=== PATIENT | female | born 1940 | race Caucasian/White ===

== ENCOUNTER 2018-01-26 21:35 | Inpatient (IN) | payer OTHER ==
[2018-01-26] MEDS ORDERED: ONDANSETRON 4 MG/2 ML VIAL IVPUSH STA (22:23)
[2018-01-26] MEDS ORDERED: SODIUM CHLORIDE 1,000 ML IV STA (22:23)
[2018-01-26] MEDS ORDERED: MORPHINE SULFATE 2 MG/ML VIAL IVPUSH ONE (22:29)
--- NOTE | 2018-01-26 22:29 | PDOC ---
Attending Attestation - Resident Resident Name: Conner Gonzalez - ED Attending Attestation I have performed the following: I have examined & evaluated the patient, The case was reviewed & discussed with the resident, I agree w/resident's findings & plan, Exceptions are as noted - HPI HPI: 01/26/18 22:28 77-year-old female who's had nausea and multiple bouts of diarrhea today. She said that she had clams last night. It didn't taste well. She hasn't had any vomiting but has some persistent nausea. She has lower abdominal cramping. She denies fever or chills or dysuria or vomiting Past surgical history of a partial hysterectomy <Neha Gil - Last Filed: 01/26/18 22:28> - Physicial Exam PE: 01/26/18 22:35 GENERAL: Well developed, well nourished. Awake and alert. No acute distress. HEENT: Normocephalic, atraumatic. PERRLA, EOMI. No conjunctival pallor. Sclera are non- icteric. Moist mucous membranes. Oropharynx is clear. NECK: Supple. Full ROM. No JVD. Carotid pulses 2+ and symmetric, without bruits. No thyromegaly. No lymphadenopathy. CARDIOVASCULAR: Regular rate and rhythm. No murmurs, rubs, or gallops. Distal pulses are 2+ and symmetric. PULMONARY: No evidence of respiratory distress. Lungs clear to auscultation bilaterally. No wheezing, rales or rhonchi. ABDOMINAL: (+) bilateral lower quadrant tenderness to palpation. Soft. Non-distended. No rebound or guarding. No organomegaly. Normoactive bowel sounds. MUSCULOSKELETAL Normal range of motion at all joints. No bony deformities or tenderness. No CVA tenderness. EXTREMITIES: No cyanosis. No clubbing. No edema. No calf tenderness. SKIN: Warm and dry. Normal capillary refill. No rashes. No jaundice. NEUROLOGICAL: Alert, awake, appropriate. Cranial nerves 2-12 intact. Normoreflexic in the upper and lower extremities. Normal speech. Toes are down-going bilaterally. Gait is normal without ataxia. PSYCHIATRIC: Cooperative. Good eye contact. Appropriate mood and affect. - Medical Decision Making 01/26/18 22:36 Documentation prepared by Eusebia Cassidy, acting as medical delivery technician for Neha Gil MD <Eusebia Cassidy - Last Filed: 01/26/18 22:36>
--- NOTE | 2018-01-26 22:55 | PDOC ---
History of Present Illness - General Chief Complaint: Pain Stated Complaint: LOWER ABDOMINAL PAIN Time Seen by Provider: 01/26/18 22:19 History Source: Patient, Family Exam Limitations: Clinical Condition - History of Present Illness Initial Comments: 01/26/18 22:59 77F PMH of HTN HLD and CVA with no residual defect who presents to the hospital with a 1 day history of diarrhea and lower abdominal cramping. She states she ate some baked clams yesterday and her daughter ate the same one but she only ate one because she thought they "tasted funny" but the patient continued to eat them. She did not eat any raw. Per the daughter and the patient she had at least 12 bowel movements today. She also endorsed some nausea but not vomiting. She denies fever chills chest pain or shortness of breath. Denies urinary symptoms. Had some blood spotting on her underwear but the patient thinks it is from being so sore from wiping and multiple bowel movements. Past History - Travel Traveled outside of the country in the last 30 days: No Close contact w/someone who was outside of country & ill: No - Past Medical History Allergies/Adverse Reactions: Allergies Allergy/AdvReac Type Severity Reaction Status Date / Time banana Allergy Verified 01/27/18 00:47 Home Medications: Ambulatory Orders Amlodipine Besylate 5 mg PO DAILY 01/26/18 Aspirin [Steven Chewable] 81 mg PO DAILY 01/26/18 Atorvastatin Ca [Lipitor] 80 mg PO HS 01/26/18 Celecoxib [Celebrex] 200 mg PO DAILY 01/26/18 Cholecalciferol (Vitamin D3) [Vitamin D3] 400 unit PO DAILY 01/26/18 Desloratadine [Clarinex] 5 mg PO DAILY 01/26/18 Docusate Sodium [Dulcolax Stool Softener] 100 mg PO DAILY 01/26/18 Multivit-Min/FA/Lycopen/Lutein [Centrum Silver Tablet] 1 each PO DAILY 01/26/18 Quinapril HCl 20 mg PO DAILY 01/26/18 Solifenacin Succinate [Vesicare -] 10 mg PO DAILY 01/26/18 CVA: Yes COPD: No HTN: Yes Hypercholesterolemia: Yes - Suicide/Smoking/Psychosocial Hx Smoking History: Former smoker Have you smoked in the past 12 months: No If you are a former smoker, when did you quit?: 40 years ago Information on smoking cessation initiated: No Review of Systems - Review of Systems Able to Perform ROS?: Yes Is the patient limited Danish proficient: Yes Constitutional: Yes: Loss of Appetite. No: Symptoms Reported, See HPI, Chills, Diaphoresis, Fever, Malaise, Night Sweats, Weakness, Weight Stable, Unintentional Wgt. Loss, Unexplained wgt Loss, Other HEENTM: No: Symptoms Reported, See HPI, Eye Pain, Blurred Vision, Tearing, Recent change in vision, Double Vision, Cataracts, Ear Pain, Ocular Prothesis, Ear Discharge, Nose Pain, Nose Congestion, Tinnitus, Nose Bleeding, Hearing Loss , Throat Pain, Throat Swelling, Mouth Pain, Dental Problems, Difficulty Swallowing, Mouth Swelling, Other Respiratory: No: Symptoms reported, See HPI, Cough, Orthopnea, Shortness of Breath, SOB with Exertion, SOB at Rest, Stridor, Wheezing, Productive cough, Hemoptysis, Other Cardiac (ROS): No: Symptoms Reported, See HPI, Chest Pain, Edema, Irregular Heart Rate, Lightheadedness, Palpitations, Syncope, Chest Tightness, Other ABD/GI: Yes: Diarrhea, Nausea, Abdominal cramping. No: Vomiting Musculoskeletal: No: Symptoms Reported, See HPI, Back Pain, Gout, Joint Pain, Joint Swelling, Muscle Pain, Muscle Weakness, Neck Pain, Joint Stiffness, Other Integumentary: No: Symptoms Reported, See HPI, Bruising, Change in Color, Change in Hair/Nails, Dryness, Erythema, Flushing, Lesions, Lumps, Pallor, Pruritus, Rash, Sweating, Other Neurological: No: Symptoms reported, See HPI, Headache, Numbness, Paresthesia, Pre-Existing Deficit, Seizure, Tingling, Tremors, Weakness, Unsteady Gait, Ataxia, Dizziness, Other Psychiatric: No: Anxiety, Depression, Frequent Crying, Stressors, Sleep Pattern Change, Emotional Problems, Mood Swings, Change in Appetite, Other Hematologic/Lymphatic: No: Symptoms Reported, See HPI, Anemia, Blood Clots, Easy Bleeding, Easy Bruising, Bleeding Diathesis, Lymph Node Abnormalities, Swollen Glands, Other *Physical Exam - Vital Signs Last Vital Signs Temp Pulse Resp BP Pulse Ox 97.3 F L 84 18 121/75 96 01/26/18 21:56 01/26/18 21:56 01/26/18 21:56 01/26/18 21:56 01/26/18 21:56 - Physical Exam General Appearance: Yes: Nourished, Obese. No: Apparent Distress HEENT: positive: EOMI, Other (cry mucous membranes) Neck: positive: Trachea midline Respiratory/Chest: positive: Lungs Clear, Normal Breath Sounds Cardiovascular: positive: Regular Rhythm, Regular Rate, S1, S2. negative: Edema , JVD Gastrointestinal/Abdominal: positive: Normal Bowel Sounds, Soft, Other (patient has pain palpation does not illicit any tenderness) Rectal Exam: positive: normal rectal tone, other (brown stool on glove. Sore and red around anus ) Musculoskeletal: negative: CVA Tenderness Integumentary: positive: Dry Neurologic: positive: pulp and paper tester II-XII NML intact, Fully Oriented, Alert ED Treatment Course - LABORATORY CBC & Chemistry Diagram: 01/28/18 06:00 01/28/18 06:00 Medical Decision Making - Medical Decision Making 01/26/18 23:12 77F with PMH of HTN and HLD presents with abdominal pain cramping and diarrhea likely with viral gastroenteritis vs colitis vs diverticulitis CBC CMP Lipase UA EKG IVF reassess admit Patient signed out to Dr. Michael *DC/Admit/Observation/Transfer Diagnosis at time of Disposition: Abdominal pain, Nausea without vomiting, Diarrhea, Leukocytosis, Sepsis - Discharge Dispostion Condition at time of disposition: Guarded - Referrals - Patient Instructions - Post Discharge Activity
[2018-01-26 23:07] LABS: BASO % 0.2 % (0-2.0); EOS % 0.1 % (0-4.5); HEMATOCRIT 45.8 % (32.4-45.2); HEMOGLOBIN 15.4 GM/dL (10.7-15.3); LYMPH % 3.9 % (8-40); MCH 30.4 pg (25.7-33.7); MCHC 33.7 g/dl (32.0-36.0); MEAN CELL VOLUME 90.1 fl (80-96); MONO % 4.1 % (3.8-10.2); NEUT % 91.7 % (42.8-82.8); PLATELET COUNT 247 K/MM3 (134-434); RBC 5.08 M/mm3 (3.60-5.2); RDW 13.5 % (11.6-15.6); WHITE BLOOD COUNT 22.8 K/mm3 (4.0-10.0)
[2018-01-26] MEDS ORDERED: ONDANSETRON 4 MG/2 ML VIAL ONE (23:33)
[2018-01-26] MEDS ORDERED: MORPHINE SULFATE 10 MG/1 ML *VIAL ONE (23:37)
[2018-01-26 23:57] LABS: ALBUMIN 3.8 g/dl (3.4-5.0); ALK PHOS 77 U/L (45-117); ANION GAP 10 (8-16); BILIRUBIN,TOTAL 0.8 mg/dL (0.2-1.0); BLOOD UREA NITROGEN 26 mg/dL (7-18); CALCIUM 9.5 mg/dL (8.5-10.1); CHLORIDE 99 mmol/L (98-107); CO2 26 mmol/L (21-32); CREATININE 1.1 mg/dL (0.55-1.02); GLUCOSE,RANDOM 158 mg/dL (74-106); LIPASE 100 U/L (73-393); POTASSIUM 3.9 mmol/L (3.5-5.1); SGOT/AST 20 U/L (15-37); SGPT/ALT 24 U/L (12-78); SODIUM 135 mmol/L (136-145); TOT PROT 6.3 g/dl (6.4-8.2)
[2018-01-27] MEDS ORDERED: SODIUM CHLORIDE 1,000 ML IV STA (00:39)
--- NOTE | 2018-01-27 02:03 | PDOC ---
*Physical Exam - Vital Signs Last Vital Signs Temp Pulse Resp BP Pulse Ox 97.3 F L 84 18 121/75 96 01/26/18 21:56 01/26/18 21:56 01/26/18 21:56 01/26/18 21:56 01/26/18 21:56 - Physical Exam Comments: 01/27/18 02:00 Care endorsed to me by Dr. Gonzalez at the end of his shift. 77 YOF p/w lower abdominal cramping, nausea, diarrhea, and spots of blood on her underwear. She has a small amount of perineal skin breakdown. Fairly benign exam, not peritoneal. Daughter stated she ate a questionable-tasting baked clam and subsequently had a mild stomach ache. WBC is 22.8k, pending CT A/P with IV contrast, then will decide on dispo. ED Treatment Course - LABORATORY CBC & Chemistry Diagram: 01/28/18 06:00 01/28/18 06:00 - ADDITIONAL ORDERS Additional order review: Laboratory Results 01/26/18 22:50 Sodium 135 L Potassium 3.9 Chloride 99 Carbon Dioxide 26 Anion Gap 10 BUN 26 H Creatinine 1.1 H Creat Clearance w eGFR 48.04 Random Glucose 158 H Calcium 9.5 Total Bilirubin 0.8 AST 20 ALT 24 Alkaline Phosphatase 77 Total Protein 6.3 L Albumin 3.8 Lipase 100 01/26/18 22:50 RBC 5.08 MCV 90.1 MCHC 33.7 RDW 13.5 MPV 9.0 Neutrophils % 91.7 H Lymphocytes % 3.9 L Monocytes % 4.1 Eosinophils % 0.1 Basophils % 0.2 - Medications Given in the ED: ED Medications Discontinued Medications Generic Name Dose Route Start Last Admin Trade Name Freq PRN Reason Stop Dose Admin Sodium Chloride 1,000 mls @ 1,000 mls/hr 01/26/18 22:23 01/26/18 23:43 Normal Saline - IV 01/26/18 23:22 1,000 mls/hr ASDIR STA Administration Sodium Chloride 1,000 mls @ 1,000 mls/hr 01/27/18 00:39 01/27/18 00:46 Normal Saline - IV 01/27/18 01:38 1,000 mls/hr ASDIR STA Administration Morphine Sulfate 2 mg 01/26/18 22:29 08/05/18 23:44 Morphine Sulfate IVPUSH 01/26/18 22:30 2 mg ONCE ONE Administration Ondansetron HCl 4 mg 01/26/18 22:23 01/26/18 23:44 Zofran Injection IVPUSH 01/26/18 22:24 4 mg ONCE STA Administration Medical Decision Making - Medical Decision Making Adult patient p/w lower abdominal pain, nausea, 12-13 episodes diarrhea. Initial Vital Signs Temp Pulse Resp BP Pulse Ox 97.3 F L 84 18 121/75 96 01/26/18 21:56 01/26/18 21:56 01/26/18 21:56 01/26/18 21:56 01/26/18 21:56 EKG: Reviewed; RBBB, QTc =498. CT A/P with IV contrast: colitis. Laboratory Tests 01/26/18 01/26/18 22:50 22:50 WBC 22.8 H RBC 5.08 Hgb 15.4 H Hct 45.8 H MCV 90.1 MCH 30.4 MCHC 33.7 RDW 13.5 Plt Count 247 MPV 9.0 Absolute Neuts (auto) 21.0 Neutrophils % 91.7 H Lymphocytes % 3.9 L Monocytes % 4.1 Eosinophils % 0.1 Basophils % 0.2 Nucleated RBC % 0 Sodium 135 L Potassium 3.9 Chloride 99 Carbon Dioxide 26 Anion Gap 10 BUN 26 H Creatinine 1.1 H Creat Clearance w eGFR 48.04 Random Glucose 158 H Calcium 9.5 Total Bilirubin 0.8 AST 20 ALT 24 Alkaline Phosphatase 77 Total Protein 6.3 L Albumin 3.8 Lipase 100 01/27/18 03:23 Reassessment: Patient noting continued pain. ADMIT The Pt is unsafe for discharge at this time. They require further hospital observation, workup, and treatment. Spoke with admitting provider, in agreement Pt to be admitted to Med/Surg. Decision to Admit order placed to Dr. Garcia. Orders placed for Flagyl and Ceftriaxone IVPB. Would have chosen Flagyl/Levaquin but patient has prolonged QTc. Also ordered is Ofirmev. 01/27/18 03:40 Patient is now febrile (rectal 100.8), pressure becoming soft (100/57), borderline tachycardic (96). Another 500 cc bolus fluids ordered, along with Ofirmev. Sepsis order set placed and blood drawn for lactate, blood cx, VBG. Blood cultures have been drawn before abx given. 01/27/18 04:34 Laboratory Tests 01/26/18 01/26/18 01/27/18 22:50 22:50 03:45 WBC 22.8 H RBC 5.08 Hgb 15.4 H Hct 45.8 H MCV 90.1 MCH 30.4 MCHC 33.7 RDW 13.5 Plt Count 247 MPV 9.0 Absolute Neuts (auto) 21.0 Total Counted 100 Neutrophils % 91.7 H Neutrophils % (Manual) 77.0 Band Neutrophils % 4.0 Lymphocytes % 3.9 L Lymphocytes % (Manual) 11.0 Monocytes % 4.1 Monocytes % (Manual) 8 Eosinophils % 0.1 Basophils % 0.2 Nucleated RBC % 0 Platelet Estimate Adequate Platelet Comment No clumping noted PT with INR 12.50 INR 1.11 H PTT (Actin FS) 24.0 L Sodium 135 L Potassium 3.9 Chloride 99 Carbon Dioxide 26 Anion Gap 10 BUN 26 H Creatinine 1.1 H Creat Clearance w eGFR 48.04 Random Glucose 158 H Lactic Acid Calcium 9.5 Total Bilirubin 0.8 AST 20 ALT 24 Alkaline Phosphatase 77 Troponin I Total Protein 6.3 L Albumin 3.8 Lipase 100 01/27/18 01/27/18 01/27/18 03:45 03:45 03:50 WBC 16.6 H RBC 4.61 Hgb 14.3 Hct 41.2 MCV 89.3 MCH 31.1 MCHC 34.8 RDW 13.1 Plt Count 216 MPV 8.9 Absolute Neuts (auto) 15.3 Total Counted Neutrophils % 92.5 H Neutrophils % (Manual) Band Neutrophils % Lymphocytes % 3.2 L Lymphocytes % (Manual) Monocytes % 4.1 Monocytes % (Manual) Eosinophils % 0.0 D Basophils % 0.2 Nucleated RBC % 0 Platelet Estimate Platelet Comment PT with INR INR PTT (Actin FS) Sodium Potassium Chloride Carbon Dioxide Anion Gap BUN Creatinine Creat Clearance w eGFR Random Glucose Lactic Acid 3.9 H* Calcium Total Bilirubin AST ALT Alkaline Phosphatase Troponin I < 0.02 Total Protein Albumin Lipase Lactate is 3.9. Patient has gotten almost sepsis bolus of IVF and repeat lactate has been ordered. *DC/Admit/Observation/Transfer Diagnosis at time of Disposition: Nausea without vomiting Abdominal pain Qualifiers: Abdominal location: unspecified location Qualified Code(s): R10.9 - Unspecified abdominal pain Diarrhea Qualifiers: Diarrhea type: infectious Qualified Code(s): A09 - Infectious gastroenteritis and colitis, unspecified Leukocytosis Qualifiers: Leukocytosis type: unspecified Qualified Code(s): D72.829 - Elevated white blood cell count, unspecified Sepsis Qualifiers: Sepsis type: sepsis due to unspecified organism Qualified Code(s): A41.9 - Sepsis, unspecified organism - Discharge Dispostion Condition at time of disposition: Guarded Decision to Admit order: Yes - Referrals - Patient Instructions - Post Discharge Activity
--- NOTE | 2018-01-27 02:16 | PDOC ---
*Physical Exam - Vital Signs Last Vital Signs Temp Pulse Resp BP Pulse Ox 97.3 F L 84 18 121/75 96 01/26/18 21:56 01/26/18 21:56 01/26/18 21:56 01/26/18 21:56 01/26/18 21:56 ED Treatment Course - LABORATORY CBC & Chemistry Diagram: 01/27/18 03:50 01/26/18 22:50 - ADDITIONAL ORDERS Additional order review: Laboratory Results 01/26/18 22:50 Sodium 135 L Potassium 3.9 Chloride 99 Carbon Dioxide 26 Anion Gap 10 BUN 26 H Creatinine 1.1 H Creat Clearance w eGFR 48.04 Random Glucose 158 H Calcium 9.5 Total Bilirubin 0.8 AST 20 ALT 24 Alkaline Phosphatase 77 Total Protein 6.3 L Albumin 3.8 Lipase 100 01/26/18 22:50 RBC 5.08 MCV 90.1 MCHC 33.7 RDW 13.5 MPV 9.0 Neutrophils % 91.7 H Lymphocytes % 3.9 L Monocytes % 4.1 Eosinophils % 0.1 Basophils % 0.2 - Medications Given in the ED: ED Medications Discontinued Medications Generic Name Dose Route Start Last Admin Trade Name Kamlesh PRN Reason Stop Dose Admin Sodium Chloride 1,000 mls @ 1,000 mls/hr 01/26/18 22:23 01/26/18 23:43 Normal Saline - IV 01/26/18 23:22 1,000 mls/hr ASDIR STA Administration Sodium Chloride 1,000 mls @ 1,000 mls/hr 01/27/18 00:39 01/27/18 00:46 Normal Saline - IV 01/27/18 01:38 1,000 mls/hr ASDIR STA Administration Morphine Sulfate 2 mg 01/26/18 22:29 01/26/18 23:44 Morphine Sulfate IVPUSH 01/26/18 22:30 2 mg ONCE ONE Administration Ondansetron HCl 4 mg 01/26/18 22:23 01/26/18 23:44 Zofran Injection IVPUSH 01/26/18 22:24 4 mg ONCE STA Administration Medical Decision Making - Medical Decision Making 01/27/18 02:16 Patient Name: GERALDO LOYOLA THIS IS A PRELIMINARY REPORT FROM [facility] DATE OF SERVICE: 2018-01-27 01:55:24 IMAGES: 15 EXAM: CT ABDOMEN \T\ PELVIS CT WITH CONTR HISTORY: Diarrhea COMPARISON: None. FINDINGS: Abdomen Liver: Structures suggest cavernous hemangiomas Spleen: Normal Pancreas: Normal Gallbladder: Normal Stomach: Normal Small bowel: Normal Large bowel: There is colonic thickening involving the distal transverse colon, descending colon and sigmoid colon. There is haziness in the surrounding fat. There is no pneumatosis Appendix: Normal Adrenals:Normal Kidneys: Normal Vascular: Normal Lymphatic: Normal Peritoneal: There is a small amount of fluid in the left paracolic gutter Pelvis: Uterus: normal Rectum: Normal Bladder: Normal The inferior thorax: Normal General: Skeletal: Normal Abdominal wall: Normal IMPRESSION: Nonspecific colitis Individualized dose optimization techniques were used for this CT. THIS DOCUMENT HAS BEEN ELECTRONICALLY SIGNED 01/27/18 06:50 Pt will be admitted for sepsis. *DC/Admit/Observation/Transfer Diagnosis at time of Disposition: Abdominal pain, Nausea without vomiting, Diarrhea, Leukocytosis, Sepsis - Discharge Dispostion Condition at time of disposition: Guarded - Referrals Referrals: Rad Perez MD [Primary Care Provider] - - Patient Instructions - Post Discharge Activity
[2018-01-27] MEDS ORDERED: morphine CARPU-JECT 2 MG/1 ML DISP.SYRIN IVPUSH ONE (02:19)
[2018-01-27] MEDS ORDERED: ACETAMINOPHEN 1000 MG/100 ML VIAL (NON FORMULARY) IVPB ONE (03:12)
[2018-01-27] MEDS ORDERED: SODIUM CHLORIDE 0.9% 500 ML INFUS.BAG IV ONE (03:12)
[2018-01-27] MEDS ORDERED: CEFTRIAXONE 1,000 MG in DEXTROSE 5%-WATER - 50 ML IVPB ONE (03:27)
[2018-01-27] MEDS ORDERED: SODIUM CHLORIDE 500 ML IV STA (03:32)
[2018-01-27] MEDS ORDERED: ONDANSETRON 4 MG/2 ML VIAL IVPUSH PRN (03:34)
[2018-01-27 04:00] LABS: BASO % 0.2 % (0-2.0); HEMATOCRIT 41.2 % (32.4-45.2); HEMOGLOBIN 14.3 GM/dL (10.7-15.3); LYMPH % 3.2 % (8-40); MCH 31.1 pg (25.7-33.7); MCHC 34.8 g/dl (32.0-36.0); MEAN CELL VOLUME 89.3 fl (80-96); MEAN PLT VOLUME 8.9 fl (7.5-11.1); MONO % 4.1 % (3.8-10.2); NEUT % 92.5 % (42.8-82.8); PLATELET COUNT 216 K/MM3 (134-434); RBC 4.61 M/mm3 (3.60-5.2); RDW 13.1 % (11.6-15.6); WHITE BLOOD COUNT 16.6 K/mm3 (4.0-10.0)
[2018-01-27 04:04] LABS: PLATELET ESTIMATE ADEQUATE
[2018-01-27 04:15] LABS: INR 1.11 (0.83-1.09); PROTHROMBIN TIME (PATIENT) 12.5 SEC (9.7-13.0)
[2018-01-27] MEDS ORDERED: cefTRIAXone SODIUM 1 GM VIAL ONE (04:20)
[2018-01-27] MEDS ORDERED: MORPHINE SULFATE 2 MG/ML VIAL ONE ×2 (04:20→10:07)
[2018-01-27] MEDS: SODIUM CHLORIDE 1,000 ML IV SCH (04:32)
[2018-01-27] MEDS ORDERED: ACETAMINOPHEN INJECTION 100 ML IVPB ONE (04:32)
[2018-01-27 04:56] LABS: PLATELET ESTIMATE ADEQUATE
[2018-01-27 06:32] LABS: MAGNESIUM 1.9 mg/dL (1.8-2.4)
[2018-01-27] MEDS ORDERED: CELECOXIB 200 MG CAPSULE PO SCH (10:00)
[2018-01-27] MEDS ORDERED: ASPIRIN 81 MG CHEWABLE TABLETS PO SCH (10:00)
[2018-01-27] MEDS ORDERED: PANTOPRAZOLE SODIUM 40 MG VIAL ONE (10:45)
--- NOTE | 2018-01-27 11:11 | HP ---
Admitting History and Physical - Primary Care Physician PCP: Rad Perez - Admission Chief Complaint: Nausea, vomiting diarrhea with abd pain History of Present Illness: 77 yrs old F active ambulates independently H/o HTN, dyslipedemia, CVa no residual weakness,chronic Back pain sciatica, last night present to Ed with 1 day H/O lower abd crampy pain with nausea, watery diarrhea and vomiting , patient daisyo experienced some chills denies any fever, as per patient on Saturday she had some clam in restaurant tht doesn't taste good yesterday around 4.00 PM developed abdominal symptoms, patient also notice some blood in stool last BM was in am , nausea and abd pain has improved, in the Ed w/u shows fever elevated TWBC with Left shift and CT abd shows collitis, elevated lactate improved after IV Hydration.No c/o chest pain, SOB, Palpitation, no change in ET denies any orthopnea or PND.Last EGd was 2 yrs ago no recent use of abx. History Source: Patient - Past Medical History UNDERWRITING MANAGER: Yes: CVA Cardiovascular: Yes: HTN, Hyperlipdemia - Smoking History Smoking history: Former smoker Have you smoked in the past 12 months: No If you are a former smoker, when did you quit?: 40 years ago - Social History ADL: Independent Home Medications - Allergies Allergies/Adverse Reactions: Allergies Allergy/AdvReac Type Severity Reaction Status Date / Time banana Allergy Verified 01/27/18 00:47 - Home Medications Home Medications: Ambulatory Orders Amlodipine Besylate 5 mg PO DAILY 01/26/18 Aspirin [Steven Chewable] 81 mg PO DAILY 01/26/18 Atorvastatin Ca [Lipitor] 80 mg PO HS 01/26/18 Celecoxib [Celebrex] 200 mg PO DAILY 01/26/18 Cholecalciferol (Vitamin D3) [Vitamin D3] 400 unit PO DAILY 01/26/18 Desloratadine [Clarinex] 5 mg PO DAILY 01/26/18 Docusate Sodium [Dulcolax Stool Softener] 100 mg PO DAILY 01/26/18 Multivit-Min/FA/Lycopen/Lutein [Centrum Silver Tablet] 1 each PO DAILY 01/26/18 Quinapril HCl 20 mg PO DAILY 01/26/18 Solifenacin Succinate [Vesicare -] 10 mg PO DAILY 01/26/18 Family Disease History - Family Disease History Family History: Unremarkable Review of Systems - Review of Systems Constitutional: reports: Chills, Fever, Loss of Appetite Eyes: denies: Blind Spots, Double Vision HENT: denies: Difficult Swallowing, Ear Discharge Neck: denies: Decreased ROM, Lumps, Pain on Movement Musculoskeletal: reports: Back Pain. denies: Crepitus, Decreased ROM Integumentary: denies: Blister, Bruising Neurological: reports: Change in LOC, Change in Speech, Confusion Endocrine: denies: Excessive Sweating, Flushing Psychiatric: denies: Altered Sleep Pattern, Anxiety, Depression Pain Intensity: 4 Physical Examination Vital Signs: Vital Signs Temperature 99.5 F 01/27/18 07:29 Pulse Rate 77 01/27/18 07:29 Respiratory Rate 18 01/27/18 07:29 Blood Pressure 102/48 01/27/18 07:29 O2 Sat by Pulse Oximetry (%) 97 01/27/18 07:29 Elderly F, not in distress, c/o back pain and mild nausea HEENT: Mm dry, no anemia, PERRLA EOMI NECK; No JVd No Bruit CHEST: CTa B/L CVS; S1S2 r ABD; no distention soft mild lower bad tend Left LQ, no rebound BS + EXT: No edema feet, no calf tenderness UNDERWRITING MANAGER: AOx3 non focal Labs: CBC, BMP 01/27/18 03:50 01/26/18 22:50 Laboratory Results - last 24 hr 01/26/18 01/26/18 01/27/18 22:50 22:50 03:45 WBC 22.8 H RBC 5.08 Hgb 15.4 H Hct 45.8 H MCV 90.1 MCH 30.4 MCHC 33.7 RDW 13.5 Plt Count 247 MPV 9.0 Absolute Neuts (auto) 21.0 Total Counted 100 Neutrophils % 91.7 H Neutrophils % (Manual) 77.0 Band Neutrophils % 4.0 Lymphocytes % 3.9 L Lymphocytes % (Manual) 11.0 Monocytes % 4.1 Monocytes % (Manual) 8 Eosinophils % 0.1 Basophils % 0.2 Nucleated RBC % 0 Platelet Estimate Adequate Platelet Comment No clumping noted PT with INR 12.50 INR 1.11 H PTT (Actin FS) 24.0 L Sodium 135 L Potassium 3.9 Chloride 99 Carbon Dioxide 26 Anion Gap 10 BUN 26 H Creatinine 1.1 H Creat Clearance w eGFR 48.04 Random Glucose 158 H Lactic Acid Calcium 9.5 Magnesium Total Bilirubin 0.8 AST 20 ALT 24 Alkaline Phosphatase 77 Troponin I Total Protein 6.3 L Albumin 3.8 Lipase 100 01/27/18 01/27/18 01/27/18 03:45 03:45 03:50 WBC 16.6 H RBC 4.61 Hgb 14.3 Hct 41.2 MCV 89.3 MCH 31.1 MCHC 34.8 RDW 13.1 Plt Count 216 MPV 8.9 Absolute Neuts (auto) 15.3 Total Counted 100 Neutrophils % 92.5 H Neutrophils % (Manual) 87.0 H Band Neutrophils % 8.0 Lymphocytes % 3.2 L Lymphocytes % (Manual) 4.0 L D Monocytes % 4.1 Monocytes % (Manual) 1 L D Eosinophils % 0.0 D Basophils % 0.2 Nucleated RBC % 0 Platelet Estimate Adequate Platelet Comment No clumping noted PT with INR INR PTT (Actin FS) Sodium Potassium Chloride Carbon Dioxide Anion Gap BUN Creatinine Creat Clearance w eGFR Random Glucose Lactic Acid 3.9 H* Calcium Magnesium 1.9 Total Bilirubin AST ALT Alkaline Phosphatase Troponin I < 0.02 Total Protein Albumin Lipase Imaging - Results Cat Scan: Report Reviewed EKG: Report Reviewed (RBBB at [address] chnages) Problem List - Problems (1) Sepsis Assessment/Plan: present with fever, nausea, vomiting and diarrhea TWBC 22 K , most likely due to Collitis IV abx, Sepsis protocol Ist Lactic acid 3.8 trended 2.3, F/U cultures and ID consultation. Code(s): A41.9 - SEPSIS, UNSPECIFIED ORGANISM Qualifiers: Sepsis type: sepsis due to unspecified organism Qualified Code(s): A41.9 - Sepsis, unspecified organism (2) Diarrhea Assessment/Plan: Infectious , fever elevated TWBC , elevated lactic acid on IV Ceftriaxone and Flagyl, noticed blood in the stool f/u H/H type and screen Code(s): R19.7 - DIARRHEA, UNSPECIFIED Qualifiers: Diarrhea type: infectious Qualified Code(s): A09 - Infectious gastroenteritis and colitis, unspecified (3) Nausea without vomiting Assessment/Plan: Zofran and PPI cont IV Hydration Code(s): R11.0 - NAUSEA (4) Dehydration Assessment/Plan: Due to diarrhea and vomiting IV Hydration F/U BMP Code(s): E86.0 - DEHYDRATION (5) LUX (acute kidney injury) Assessment/Plan: Due to Dehydration and infectious etiology F/U BMP after hydration. Code(s): N17.9 - ACUTE KIDNEY FAILURE, UNSPECIFIED (6) BRBPR (bright red blood per rectum) Assessment/Plan: BRBPR last colonoscopy was 2 yrs ago , Type and screen F/U H/H, GI consult, ID consult stool WBC, culture,Hold ASA and Celebrex Code(s): K62.5 - HEMORRHAGE OF ANUS AND RECTUM (7) Sciatica Assessment/Plan: Pain control. Code(s): M54.30 - SCIATICA, UNSPECIFIED SIDE
[2018-01-27] MEDS: PANTOPRAZOLE SODIUM 40 MG VIAL IVPUSH SCH (11:15)
[2018-01-27] MEDS: CHOLECALCIFEROL (VITAMIN D3) 400 UNIT TABLET (FP) PO SCH (11:15)
[2018-01-27] MEDS: QUINAPRIL HCL 20 MG TABLET (FP) PO SCH (11:15)
[2018-01-27] MEDS: SOLIFENACIN SUCCINATE 5 MG TAB (FP) PO SCH (11:15)
[2018-01-27] MEDS: LORATADINE 10 MG TABLET PO SCH (11:15)
[2018-01-27] MEDS: amLODIPine BESYLATE 5 MG TABLET (FP) PO SCH (11:15)
[2018-01-27] MEDS: MORPHINE SULFATE 2 MG/ML VIAL IVPUSH PRN (11:17)
[2018-01-27 11:27] LABS: BASO % 0.1 % (0-2.0); HEMATOCRIT 38.5 % (32.4-45.2); HEMOGLOBIN 13.3 GM/dL (10.7-15.3); MCH 30.9 pg (25.7-33.7); MCHC 34.5 g/dl (32.0-36.0); MEAN CELL VOLUME 89.3 fl (80-96); MEAN PLT VOLUME 9.2 fl (7.5-11.1); MONO % 5.9 % (3.8-10.2); PLATELET COUNT 181 K/MM3 (134-434); RBC 4.31 M/mm3 (3.60-5.2); RDW 13.7 % (11.6-15.6); WHITE BLOOD COUNT 18.5 K/mm3 (4.0-10.0)
[2018-01-27 11:43] LABS: ANION GAP 8 (8-16); BILIRUBIN,TOTAL 0.7 mg/dL (0.2-1.0); BLOOD UREA NITROGEN 20 mg/dL (7-18); CALCIUM 8.4 mg/dL (8.5-10.1); CHLORIDE 102 mmol/L (98-107); CO2 26 mmol/L (21-32); CREATININE 0.9 mg/dL (0.55-1.02); GLUCOSE,RANDOM 110 mg/dL (74-106); POTASSIUM 3.4 mmol/L (3.5-5.1); SGOT/AST 15 U/L (15-37); SGPT/ALT 20 U/L (12-78); SODIUM 136 mmol/L (136-145)
--- NOTE | 2018-01-27 11:43 | EKG ---
Test Reason : Blood Pressure : / mmHG Vent. Rate : 087 BPM Atrial Rate : 087 BPM P-R Int : 160 ms QRS Dur : 138 ms QT Int : 414 ms P-R-T Axes : 053 -16 048 degrees QTc Int : 498 ms NORMAL SINUS RHYTHM RIGHT BUNDLE BRANCH BLOCK ABNORMAL ECG NO PREVIOUS ECGS AVAILABLE Confirmed by ERIC MCLEOD, LEANDRO ([id number]) on 01/27/2018 11:42:42 AM Referred By: Confirmed By:LEANDRO REYES MD
[2018-01-27 11:44] LABS: ALK PHOS 54 U/L (45-117)
[2018-01-27] MEDS: D5-1/2NS+10 MEQ KCL - 10 MEQ/1,000 ML INFUS.BAG IV SCH (13:22)
--- NOTE | 2018-01-27 13:40 | PN ---
Progress Note (short form) - Note Progress Note: ID Consult dictated Acute gastroenteritis Fever/ leukocytosis R/O sepsis secondary to GI source Lactic acidosis Await cultures Continue empiric ceftriaxone/flagyl
[2018-01-27 13:45] VITALS: BMI 32.2
[2018-01-27 14:22] LABS: ACANTHOCYTES 0; ANISOCYTOSIS 0; HELMET CELLS 0; HOWELL-JOLLY BODIES 0; MACROCYTOSIS 0; OVALOCYTE 0; PLATELET ESTIMATE NORMAL; ROULEAU 0; SICKELED CELLS 0; TARGET CELLS 0; TEAR DROP CELLS 0; TOXIC GRANULATION 0
[2018-01-27] MEDS ORDERED: POTASSIUM CHLORIDE ORAL LIQUID 20 MEQ/15 ML PO ONE (16:30)
--- NOTE | 2018-01-27 19:05 | CONS ---
DATE OF CONSULTATION: DATE OF DICTATION: 01/27/2018 INFECTIOUS DISEASE CONSULTATION HISTORY OF PRESENT ILLNESS: The patient is a 77-year-old female evaluated for acute gastroenteritis. Patient states that she was well until 1 day prior to admission on the evening of January 25. She ate dinner with friends and family members. She consumed a meal of baked clams. She subsequently developed crampy lower abdominal pain, nausea and loose nonbloody stool. She reports having 12 bowel movement. She also experienced subjective fevers and chills. She presented to the emergency room where she was noted to be afebrile with a markedly elevated white blood cell count and a lactic acidosis. Cultures were obtained. She was empirically treated with Levaquin, Flagyl. CAT scan of the abdomen was obtained, the result is pending. At the present time she is comfortable after receiving an opiate analgesic. She has no complaints of abdominal pain. Abdominal pain was described as crampy in nature and involving the lower abdomen in the suprapubic area without radiation. She denies any nalini red blood per rectum, however daughter reports she did notice blood in the toilet. She had nausea but no vomiting. No other family members or friends became ill who shared the same meal. Recent travel to [place] last week. She was well while in [place]. No recent antibiotic therapy. PAST MEDICAL HISTORY: Positive for CVA, hypertension, hyperlipidemia. PAST SURGICAL HISTORY: Status post hysterectomy. ALLERGIES: No known allergies. MEDICATION: Norvasc, aspirin, Lipitor, Celebrex, quinapril. SOCIAL HISTORY: Former smoker. Lives at home with family members. SYSTEMS REVIEW: Neurologic: No loss of consciousness, seizure activity. Positive history of stroke in the past. Cardiac: Negative for chest pain or palpitations. Respiratory: Negative for cough or sputum production. Gastrointestinal: As per HPI. Genitourinary: Negative for urinary tract infection. LABORATORY DATA: White count on admission 22.8, with left shift. Hematocrit 45.8, platelet count 247. BUN 20, creatinine 0.9. Liver enzymes normal. Lactic acid 2.3. PHYSICAL EXAMINATION: General: On exam, the patient is awake and alert, lying in bed, in no acute distress. Not acutely toxic appearing. Vital signs: Temperature 99.5, T-max 100.8, blood pressure 102/48, pulse 72 regular, respirations 20 per minute. HEENT: Sclerae anicteric. Dry mucous membranes. Cardiovascular: Heart sounds S1, S2. Lungs: Clear. Abdomen: Hypoactive bowel sounds . Abdomen is soft, no tenderness elicited, no mass, rebound, or rigidity. Extremities: 1+ edema. IMPRESSION: 1. Acute gastroenteritis. 2. Fever, leukocytosis, rule out sepsis secondary to gastrointestinal source. 3. Lactic acidosis. Await stool studies, suspect viral versus bacterial gastroenteritis. Continue empiric antibiotic coverage for enteric pathogens with ceftriaxone and Flagyl, await CT results. GI evaluation . Thank you for the kind referral. MANUEL LYNN M.D. [id number]
--- NOTE | 2018-01-27 21:34 | CON.GI ---
Consult Consult Specialty:: Gastroenterology Referred by:: Dr Perez Reason for Consultation:: Bloody diarrhea and pain - History of Present Illness Chief Complaint: Lower abdominal pain followed by diarrhea and bleeding History of Present Illness: 77F developed the sudden onset of colicky suprapubic pain yesterday. She had eaten clams at a restaurant the night before but denies N/V. The pain culminated on a hard mucoid stool followed by multiple loose diarrheal movements that became bloody. The pain was managed wth morphine in the ER and has subsided as has the diarrhea. She had a WBC > 20K and lactic acidosis on admission. She denies any recent foreign travel or antibiotic exposure. Her son did return for a visit from [facility] several weeks ago and had GI problems. She had had several colonoscopies with Dr. Uche Devine but cannot recall being told of polyps or diverticular disease. She's a bit hungry tonight. - History Source History Provided By: Patient Limitations to Obtaining History: No Limitations - Past Medical History LIFE ASSURANCE REPRESENTATIVE: Yes: CVA (resolved at [facility] in 05/06 with thrombolytic therapy- had speech deficits & RUE weakness) Cardio/Vascular: Yes: HTN, Hyperlipdemia Gastrointestinal: Yes: Peptic Ulcer Disease (remotely- no hemorrhage) ...: No - Past Surgical History Past Surgical History: Yes: Colonoscopy, Tonsillectomy Additional Surgical History: transvaginal ISAURA for suspected premalignant condition that proved to be benign - Alcohol/Substance Use Hx Alcohol Use: Yes (wine with dinner) History of Substance Use: reports: None - Smoking History Smoking history: Former smoker Have you smoked in the past 12 months: No If you are a former smoker, when did you quit?: quit 1974 - Social History Usual Living Arrangement: Alone ADL: Independent Occupation: retired clerical work Place of : [facility] History of Recent Travel: No Home Medications - Allergies Allergies/Adverse Reactions: Allergies Allergy/AdvReac Type Severity Reaction Status Date / Time banana Allergy Verified 01/27/18 00:47 - Home Medications Home Medications: Ambulatory Orders Amlodipine Besylate 5 mg PO DAILY 01/26/18 Aspirin [Steven Chewable] 81 mg PO DAILY 01/26/18 Atorvastatin Ca [Lipitor] 80 mg PO HS 01/26/18 Celecoxib [Celebrex] 200 mg PO DAILY 01/26/18 Cholecalciferol (Vitamin D3) [Vitamin D3] 400 unit PO DAILY 01/26/18 Desloratadine [Clarinex] 5 mg PO DAILY 01/26/18 Docusate Sodium [Dulcolax Stool Softener] 100 mg PO DAILY 01/26/18 Multivit-Min/FA/Lycopen/Lutein [Centrum Silver Tablet] 1 each PO DAILY 01/26/18 Quinapril HCl 20 mg PO DAILY 01/26/18 Solifenacin Succinate [Vesicare -] 10 mg PO DAILY 01/26/18 Family Disease History - Family Disease History Family Disease History: CA: Father (in his late 60's of lung cancer), Other: Mother ( in her 70's of broken heart) Review of Systems - Review of Systems Constitutional: reports: Chills, Malaise Eyes: reports: No Symptoms HENT: reports: No Symptoms Neck: reports: No Symptoms Cardiovascular: reports: No Symptoms Respiratory: reports: No Symptoms Gastrointestinal: reports: Abdominal Pain, Constipation, Diarrhea, Rectal Bleeding Genitourinary: reports: No Symptoms Musculoskeletal: reports: Joint Pain Neurological: reports: No Symptoms Physical Exam-GI Vital Signs: Vital Signs Temperature 98.5 F 01/27/18 18:47 Pulse Rate 91 H 01/27/18 18:47 Respiratory Rate 18 01/27/18 18:47 Blood Pressure 115/57 01/27/18 18:47 O2 Sat by Pulse Oximetry (%) 97 01/27/18 13:46 CBC,CMP WBC 18.5 K/mm3 (4.0-10.0) H 01/27/18 10:41 RBC 4.31 M/mm3 (3.60-5.2) 01/27/18 10:41 Hgb 13.3 GM/dL (10.7-15.3) 01/27/18 10:41 Hct 38.5 % (32.4-45.2) 01/27/18 10:41 MCV 89.3 fl (80-96) 01/27/18 10:41 MCH 30.9 pg (25.7-33.7) 01/27/18 10:41 MCHC 34.5 g/dl (32.0-36.0) 01/27/18 10:41 RDW 13.7 % (11.6-15.6) 01/27/18 10:41 Plt Count 181 K/MM3 (134-434) 01/27/18 10:41 MPV 9.2 fl (7.5-11.1) 01/27/18 10:41 Absolute Neuts (auto) 16.9 # 01/27/18 10:41 Total Counted 100 01/27/18 03:50 Neutrophils % 91.0 % (42.8-82.8) H 01/27/18 10:41 Neutrophils % (Manual) 68.6 % (42.8-82.8) D 01/27/18 10:41 Band Neutrophils % 19.6 % 01/27/18 10:41 Lymphocytes % 3.0 % (8-40) L 01/27/18 10:41 Lymphocytes % (Manual) 2.9 % (8-40) L D 01/27/18 10:41 Monocytes % 5.9 % (3.8-10.2) 01/27/18 10:41 Monocytes % (Manual) 8 % (3.8-10.2) D 01/27/18 10:41 Eosinophils % 0.0 % (0-4.5) 01/27/18 10:41 Eosinophils % (Manual) 0.0 % (0-4.5) 01/27/18 10:41 Basophils % 0.1 % (0-2.0) 01/27/18 10:41 Basophils % (Manual) 0.0 % (0-2.0) 01/27/18 10:41 Myelocytes % (Man) 0 % (0-2) 01/27/18 10:41 Promyelocytes % (Man) 0 % (0-2) 01/27/18 10:41 Blast Cells % (Manual) 0 % (0-0) 01/27/18 10:41 Nucleated RBC % 0 % (0-0) 01/27/18 10:41 Metamyelocytes 1 % (0-2) 01/27/18 10:41 Hypochromia 0 01/27/18 10:41 Toxic Granulation 0 01/27/18 10:41 Dohle Bodies 0 01/27/18 10:41 Platelet Estimate Normal 01/27/18 10:41 Platelet Comment No clumping noted 01/27/18 03:50 Polychromasia 0 01/27/18 10:41 Poikilocytosis 0 01/27/18 10:41 Basophilic Stippling 0 01/27/18 10:41 Anisocytosis 0 01/27/18 10:41 Microcytosis 0 01/27/18 10:41 Macrocytosis 0 01/27/18 10:41 Spherocytes 0 01/27/18 10:41 Sickle Cells 0 01/27/18 10:41 Target Cells 0 01/27/18 10:41 Tear Drop Cells 0 01/27/18 10:41 Ovalocytes 0 01/27/18 10:41 Stomatocytes 0 01/27/18 10:41 Helmet Cells 0 01/27/18 10:41 [place] Bodies 0 01/27/18 10:41 [place] Rings 0 01/27/18 10:41 Lamont Cells 0 01/27/18 10:41 Acanthocytes (Spur) 0 01/27/18 10:41 Rouleaux 0 01/27/18 10:41 Fragmented RBCs 0 01/27/18 10:41 Schistocytes 0 01/27/18 10:41 Sodium 136 mmol/L (136-145) 01/27/18 10:41 Potassium 3.4 mmol/L (3.5-5.1) L 01/27/18 10:41 Chloride 102 mmol/L (98-107) 01/27/18 10:41 Carbon Dioxide 26 mmol/L (21-32) 01/27/18 10:41 Anion Gap 8 (8-16) 01/27/18 10:41 BUN 20 mg/dL (7-18) H 01/27/18 10:41 Creatinine 0.9 mg/dL (0.55-1.02) 01/27/18 10:41 Creat Clearance w eGFR > 60 (>60) 01/27/18 10:41 Random Glucose 110 mg/dL (74-106) H 01/27/18 10:41 Lactic Acid 2.3 mmol/L (0.0-2.0) H* 01/27/18 07:56 Calcium 8.4 mg/dL (8.5-10.1) L 01/27/18 10:41 Magnesium 1.9 mg/dL (1.8-2.4) 01/27/18 03:45 Total Bilirubin 0.7 mg/dL (0.2-1.0) 01/27/18 10:41 AST 15 U/L (15-37) 01/27/18 10:41 ALT 20 U/L (12-78) 01/27/18 10:41 Alkaline Phosphatase 54 U/L (45-117) D 01/27/18 10:41 Troponin I < 0.02 ng/ml (0.00-0.05) 01/27/18 03:45 Total Protein 5.0 g/dl (6.4-8.2) L 01/27/18 10:41 Albumin 3.0 g/dl (3.4-5.0) L 01/27/18 10:41 Lipase 100 U/L (73-393) 01/26/18 22:50 Current Medications Generic Name Dose Route Start Last Admin Trade Name Freq PRN Reason Stop Dose Admin Amlodipine Besylate 5 mg 01/27/18 10:00 01/27/18 11:15 Norvasc - PO 5 mg DAILY [facility] Administration Atorvastatin Calcium 80 mg 01/27/18 22:00 Lipitor - PO HS [facility] Cholecalciferol 400 unit 01/27/18 10:00 01/27/18 11:15 Vitamin D3 - PO 400 unit DAILY BE[facility] Administration Ceftriaxone Sodium 1 gm/ 50 mls @ 100 mls/hr 01/28/18 10:00 Dextrose IVPB DAILY [facility] Sodium Chloride 1,000 mls @ 100 mls/hr 01/27/18 03:45 01/27/18 04:32 Normal Saline - IV 100 mls/hr ASDIR [facility] Administration Potassium Chloride/Dextrose/Sod Cl 10 meq in 1,000 mls @ 100 mls/hr 01/27/18 12:30 01/27/18 13:22 D5-1/2ns+10 Meq Kcl - IV 100 mls/hr ASDIR [facility] Administration Metronidazole 500 mg in 100 mls @ 100 mls/hr 01/27/18 18:00 01/27/18 17:43 Flagyl 500mg Premixed Ivpb - IVPB 100 mls/hr Q8H-IV [facility] Administration Loratadine 10 mg 01/27/18 10:00 01/27/18 11:15 Claritin - PO 10 mg DAILY [facility] Administration Morphine Sulfate 2 mg 01/27/18 11:08 01/27/18 11:17 Morphine Sulfate IVPUSH 2 mg Q4H PRN Administration PAIN LEVEL 4 - 6 Ondansetron HCl 4 mg 01/27/18 03:34 Zofran Injection IVPUSH Q6H PRN NAUSEA Pantoprazole Sodium 40 mg 01/27/18 10:00 01/27/18 11:15 Protonix Iv IVPUSH 40 mg DAILY [facility] Administration Quinapril HCl 20 mg 01/27/18 10:00 01/27/18 11:15 Accupril - PO 20 mg DAILY [facility] Administration Solifenacin 10 mg 01/27/18 10:00 01/27/18 11:15 Vesicare - PO 10 mg DAILY [facility] Administration Constitutional: Yes: Calm Eyes: Yes: Conjunctiva Clear HENT: Yes: Normocephalic Neck: Yes: Supple Cardiovascular: Yes: Regular Rate and Rhythm Respiratory: Yes: CTA Bilaterally Gastrointestinal Inspection: Yes: Distention ...Auscultate: Yes: Normoactive Bowel Sounds ...Palpate: Yes: Soft, Other (nontender) ...Rectal Exam: Yes: Guaiac Positive (red tinged loose strongly guaiac positive stool) Edema: No Neurological: Yes: Alert, Oriented Labs: CBC, BMP 01/27/18 10:41 01/27/18 10:41 INR, PTT INR 1.11 (0.83-1.09) H 01/27/18 03:45 Imaging - Results Cat Scan: Image Reviewed (left colon thickened) Problem List - Problems (1) Bloody diarrhea Assessment/Plan: I believe that Teresa's clinical picture is most consistent with ischemic colitis but agree with the need to exclude an infectious colitis and C diff. Diverticulitis appears less likely. She appears to be improving so a clear liquid breakfast will be ordered. I agree with continued antibiotics for now and await the official CT reading. We have mutually agreed that she will ultimately followup with Dr. Devine. Code(s): R19.7 - DIARRHEA, UNSPECIFIED (2) Abdominal pain Code(s): R10.9 - UNSPECIFIED ABDOMINAL PAIN Qualifiers: Abdominal location: unspecified location Qualified Code(s): R10.9 - Unspecified abdominal pain (3) Leukocytosis Code(s): D72.829 - ELEVATED WHITE BLOOD CELL COUNT, UNSPECIFIED Qualifiers: Leukocytosis type: unspecified Qualified Code(s): D72.829 - Elevated white blood cell count, unspecified
[2018-01-27] MEDS: ATORVASTATIN CA 80 MG TABLET (FP) PO SCH (22:24)
[2018-01-28 08:13] LABS: CHLORIDE 106 mmol/L (98-107); POTASSIUM 3.8 mmol/L (3.5-5.1); SODIUM 140 mmol/L (136-145)
[2018-01-28 08:15] LABS: BASO % 0.2 % (0-2.0); EOS % 0.5 % (0-4.5); HEMATOCRIT 34.8 % (32.4-45.2); LYMPH % 4.9 % (8-40); MCH 30.9 pg (25.7-33.7); MCHC 34.4 g/dl (32.0-36.0); MEAN CELL VOLUME 89.7 fl (80-96); MEAN PLT VOLUME 9.5 fl (7.5-11.1); MONO % 3.2 % (3.8-10.2); NEUT % 91.2 % (42.8-82.8); PLATELET COUNT 170 K/MM3 (134-434); RBC 3.88 M/mm3 (3.60-5.2); RDW 13.8 % (11.6-15.6); WHITE BLOOD COUNT 14.9 K/mm3 (4.0-10.0)
[2018-01-28 08:17] LABS: ANION GAP 11 (8-16); BLOOD UREA NITROGEN 16 mg/dL (7-18); CALCIUM 8.4 mg/dL (8.5-10.1); CO2 23 mmol/L (21-32); CREATININE 0.7 mg/dL (0.55-1.02); GLUCOSE,RANDOM 97 mg/dL (74-106)
[2018-01-28] MEDS ORDERED: PT OWN MED DRAWER 7, Y5N ONE (09:22)
[2018-01-28] MEDS ORDERED: cefTRIAXone SODIUM 1 GM VIAL ONE (09:23)
[2018-01-28] MEDS ORDERED: DEXTROSE 5%-WATER - 50 ML IVPB ONE (09:23)
[2018-01-28] MEDS: QUINAPRIL HCL 20 MG TABLET (FP) PO SCH (09:39)
[2018-01-28] MEDS: LORATADINE 10 MG TABLET PO SCH (09:39)
[2018-01-28] MEDS: amLODIPine BESYLATE 5 MG TABLET (FP) PO SCH (09:39)
[2018-01-28] MEDS: SODIUM CHLORIDE 1,000 ML IV SCH (09:39)
[2018-01-28] MEDS: SOLIFENACIN SUCCINATE 5 MG TAB (FP) PO SCH (09:40)
[2018-01-28] MEDS: PANTOPRAZOLE SODIUM 40 MG VIAL IVPUSH SCH (09:40)
[2018-01-28] MEDS: CHOLECALCIFEROL (VITAMIN D3) 400 UNIT TABLET (FP) PO SCH (09:40)
[2018-01-28] MEDS: CEFTRIAXONE 1 GM in DEXTROSE 5%-WATER - 50 ML IVPB SCH (09:40)
[2018-01-28] MEDS: MORPHINE SULFATE 2 MG/ML VIAL IVPUSH PRN ×3 (11:42→22:39)
[2018-01-28 12:20] LABS: ANISOCYTOSIS 0; MACROCYTOSIS 0; PLATELET ESTIMATE NORMAL
--- NOTE | 2018-01-28 12:36 | PN ---
Progress Note, Physician Chief Complaint: feels improved less nausea and abd pain vomiting still c/o abd pain. - Current Medication List Current Medications: Active Medications Amlodipine Besylate (Norvasc -) 5 mg PO DAILY [facility] Last Admin: 01/28/18 09:39 Dose: 5 mg Atorvastatin Calcium (Lipitor -) 80 mg PO HS [facility] Last Admin: 01/27/18 22:24 Dose: 80 mg Cholecalciferol (Vitamin D3 -) 400 unit PO DAILY [facility] Last Admin: 01/28/18 09:40 Dose: 400 unit Ceftriaxone Sodium 1 gm/ (Dextrose) 50 mls @ 100 mls/hr IVPB DAILY [facility] Last Admin: 01/28/18 09:40 Dose: 100 mls/hr Sodium Chloride (Normal Saline -) 1,000 mls @ 100 mls/hr IV ASDIR [facility] Last Admin: 01/28/18 09:39 Dose: Not Given Potassium Chloride/Dextrose/Sod Cl (D5-1/2ns+10 Meq Kcl -) 10 meq in 1,000 mls @ 100 mls/hr IV ASDIR [facility] Last Admin: 01/27/18 13:22 Dose: 100 mls/hr Metronidazole (Flagyl 500mg Premixed Ivpb -) 500 mg in 100 mls @ 100 mls/hr IVPB Q8H-IV [facility] Last Admin: 01/28/18 09:40 Dose: 100 mls/hr Loratadine (Claritin -) 10 mg PO DAILY [facility] Last Admin: 01/28/18 09:39 Dose: 10 mg Morphine Sulfate (Morphine Sulfate) 2 mg IVPUSH Q4H PRN PRN Reason: PAIN LEVEL 4 - 6 Last Admin: 01/28/18 11:42 Dose: 2 mg Ondansetron HCl (Zofran Injection) 4 mg IVPUSH Q6H PRN PRN Reason: NAUSEA Last Admin: 01/28/18 11:47 Dose: 4 mg Pantoprazole Sodium (Protonix Iv) 40 mg IVPUSH DAILY [facility] Last Admin: 01/28/18 09:40 Dose: 40 mg Quinapril HCl (Accupril -) 20 mg PO DAILY [facility] Last Admin: 01/28/18 09:39 Dose: 20 mg Solifenacin (Vesicare -) 10 mg PO DAILY [facility] Last Admin: 01/28/18 09:40 Dose: 10 mg - Objective Vital Signs: Vital Signs Temperature 98.3 F 01/28/18 09:30 Pulse Rate 105 H 01/28/18 09:30 Respiratory Rate 18 01/28/18 09:30 Blood Pressure 130/67 01/28/18 09:30 O2 Sat by Pulse Oximetry (%) 97 01/27/18 21:00 Elderly F, not in distress, c/o back pain and mild nausea HEENT: Mm dry, no anemia, PERRLA EOMI NECK; No JVd No Bruit CHEST: CTa B/L CVS; S1S2 r ABD; no distention soft mild lower bad tend Left LQ, no rebound BS + EXT: No edema feet, no calf tenderness DEPARTMENT OF MATHEMATICS CHAIR: AOx3 non focal Labs: CBC, BMP 01/28/18 06:00 01/28/18 06:00 INR, PTT INR 1.11 (0.83-1.09) H 01/27/18 03:45 Problem List - Problems (1) Sepsis Assessment/Plan: Improving present with fever, nausea, vomiting and diarrhea TWBC 22 K , trended 14 K remained afebrile will F/U ID and GI recommondations. Code(s): A41.9 - SEPSIS, UNSPECIFIED ORGANISM Qualifiers: Sepsis type: sepsis due to unspecified organism Qualified Code(s): A41.9 - Sepsis, unspecified organism (2) Diarrhea Assessment/Plan: Improving, Infectious , fever elevated TWBC , elevated lactic acid on IV Ceftriaxone and Flagyl, Code(s): R19.7 - DIARRHEA, UNSPECIFIED Qualifiers: Diarrhea type: infectious Qualified Code(s): A09 - Infectious gastroenteritis and colitis, unspecified (3) Nausea without vomiting Assessment/Plan: improving cont Zofran and PPI cont IV Hydration Code(s): R11.0 - NAUSEA (4) Dehydration Assessment/Plan: Cont IV improving. Code(s): E86.0 - DEHYDRATION (5) LUX (acute kidney injury) Assessment/Plan: Improving, Due to Dehydration and infectious etiology F/U BMP after hydration. Code(s): N17.9 - ACUTE KIDNEY FAILURE, UNSPECIFIED (6) BRBPR (bright red blood per rectum) Assessment/Plan: Last BM this am slight blood mixed, BRBPR last colonoscopy was 2 yrs ago , Type and screen F/U H/H, GI consult, ID consult stool WBC, culture,Hold ASA and Celebrex Code(s): K62.5 - HEMORRHAGE OF ANUS AND RECTUM (7) Sciatica Assessment/Plan: Pain control. Code(s): M54.30 - SCIATICA, UNSPECIFIED SIDE
[2018-01-28] MEDS: D5-1/2NS+10 MEQ KCL - 10 MEQ/1,000 ML INFUS.BAG IV SCH (13:59)
--- NOTE | 2018-01-28 21:50 | PN ---
GI Progress Note Subjective: GI NOte: Had severe pain requiring morphine earlier. Had only a smudge of stool and bleeding has stopped. CT most c/w ischemic colitis. Reveals liver cysts vs hemangiomas. Will order sonogram. - Objective Vital Signs: Vital Signs Temperature 98.6 F 01/28/18 18:00 Pulse Rate 96 H 01/28/18 18:00 Respiratory Rate 18 01/28/18 18:00 Blood Pressure 135/50 01/28/18 18:00 O2 Sat by Pulse Oximetry (%) 96 01/28/18 17:35 Laboratory Tests 01/26/18 01/27/18 01/28/18 22:50 10:41 06:00 WBC 22.8 H 18.5 H C-Reactive Protein 18.3 H 01/28/18 06:00 WBC 14.9 H C-Reactive Protein Constitutional: Calm ...Auscultate: Yes: Normoactive Bowel Sounds ...Palpate: Yes: Soft, Other (no focal tenderness or masses) Labs: CBC, BMP 01/28/18 06:00 01/28/18 06:00 INR, PTT INR 1.11 (0.83-1.09) H 01/27/18 03:45 Problem List - Problems (1) Bloody diarrhea Assessment/Plan: Suspect ischemic colitis not yet ready for solids. Will try full liquids. Continue antibiotics Code(s): R19.7 - DIARRHEA, UNSPECIFIED (2) Abdominal pain Code(s): R10.9 - UNSPECIFIED ABDOMINAL PAIN Qualifiers: Abdominal location: unspecified location Qualified Code(s): R10.9 - Unspecified abdominal pain (3) Leukocytosis Code(s): D72.829 - ELEVATED WHITE BLOOD CELL COUNT, UNSPECIFIED Qualifiers: Leukocytosis type: unspecified Qualified Code(s): D72.829 - Elevated white blood cell count, unspecified
[2018-01-28] MEDS: ATORVASTATIN CA 80 MG TABLET (FP) PO SCH (22:07)
[2018-01-29] MEDS: D5-1/2NS+10 MEQ KCL - 10 MEQ/1,000 ML INFUS.BAG IV SCH (01:06)
[2018-01-29 07:26] LABS: BASO % 0.2 % (0-2.0); HEMATOCRIT 31.2 % (32.4-45.2); HEMOGLOBIN 11.1 GM/dL (10.7-15.3); LYMPH % 6.9 % (8-40); MCH 31.8 pg (25.7-33.7); MCHC 35.6 g/dl (32.0-36.0); MEAN CELL VOLUME 89.1 fl (80-96); MEAN PLT VOLUME 9.4 fl (7.5-11.1); MONO % 4.6 % (3.8-10.2); NEUT % 87.3 % (42.8-82.8); PLATELET COUNT 158 K/MM3 (134-434); RDW 13.5 % (11.6-15.6); WHITE BLOOD COUNT 12.7 K/mm3 (4.0-10.0)
[2018-01-29 08:35] LABS: CHLORIDE 104 mmol/L (98-107); POTASSIUM 3.7 mmol/L (3.5-5.1); SODIUM 137 mmol/L (136-145)
[2018-01-29 08:57] LABS: ANION GAP 7 (8-16); BLOOD UREA NITROGEN 10 mg/dL (7-18); CALCIUM 8.4 mg/dL (8.5-10.1); CO2 26 mmol/L (21-32); CREATININE 0.7 mg/dL (0.55-1.02); GLUCOSE,RANDOM 102 mg/dL (74-106)
[2018-01-29] MEDS ORDERED: POTASSIUM CHLORIDE TABS 20 MEQ TABLET.ER (FP) PO ONE (10:21)
--- NOTE | 2018-01-29 10:24 | PN ---
Progress Note, Physician Chief Complaint: Pt sitting in bed in no acute distress. reports tolerated diet this am. reports had some old blood per rectum last night otherwise denies any complaints. denies chest pain, sob, n/v/d, dysuria - Current Medication List Current Medications: Active Medications Amlodipine Besylate (Norvasc -) 5 mg PO DAILY [facility] Last Admin: 01/28/18 09:39 Dose: 5 mg Atorvastatin Calcium (Lipitor -) 80 mg PO HS [facility] Last Admin: 01/28/18 22:07 Dose: 80 mg Cholecalciferol (Vitamin D3 -) 400 unit PO DAILY [facility] Last Admin: 01/28/18 09:40 Dose: 400 unit Ceftriaxone Sodium 1 gm/ (Dextrose) 50 mls @ 100 mls/hr IVPB DAILY [facility] Last Admin: 01/28/18 09:40 Dose: 100 mls/hr Metronidazole (Flagyl 500mg Premixed Ivpb -) 500 mg in 100 mls @ 100 mls/hr IVPB Q8H-IV [facility] Last Admin: 01/29/18 01:06 Dose: 100 mls/hr Loratadine (Claritin -) 10 mg PO DAILY [facility] Last Admin: 01/28/18 09:39 Dose: 10 mg Morphine Sulfate (Morphine Sulfate) 2 mg IVPUSH Q4H PRN PRN Reason: PAIN LEVEL 4 - 6 Last Admin: 01/28/18 22:39 Dose: 2 mg Ondansetron HCl (Zofran Injection) 4 mg IVPUSH Q6H PRN PRN Reason: NAUSEA Last Admin: 01/28/18 11:47 Dose: 4 mg Pantoprazole Sodium (Protonix -) 40 mg PO DAILY [facility] Potassium Chloride (K-Dur -) 40 meq PO ONCE ONE Stop: 01/29/18 10:22 Quinapril HCl (Accupril -) 20 mg PO DAILY [facility] Last Admin: 01/28/18 09:39 Dose: 20 mg Solifenacin (Vesicare -) 10 mg PO DAILY [facility] Last Admin: 01/28/18 09:40 Dose: 10 mg - Objective Vital Signs: Vital Signs Temperature 98.5 F 01/29/18 05:33 Pulse Rate 86 01/29/18 05:33 Respiratory Rate 20 01/29/18 05:33 Blood Pressure 120/58 01/29/18 05:33 O2 Sat by Pulse Oximetry (%) 95 08/08/18 01:00 Constitutional: Yes: Well Nourished, No Distress, Calm Cardiovascular: Yes: WNL, Regular Rate and Rhythm. No: Gallop, Murmur Respiratory: Yes: WNL, Regular, CTA Bilaterally. No: Accessory Muscle Use, Rhonchi, SOB, Tachypnea, Wheezes Gastrointestinal: Yes: WNL, Normal Bowel Sounds, Soft, Abdomen, Obese. No: Distention, Tenderness Genitourinary: Yes: WNL Extremities: Yes: WNL Edema: Yes Edema: LLE: Trace, RLE: Trace Neurological: Yes: WNL, Alert, Oriented Psychiatric: Yes: WNL, Alert, Oriented Labs: CBC, BMP 01/29/18 06:30 01/29/18 06:30 INR, PTT INR 1.11 (0.83-1.09) H 01/27/18 03:45 Problem List - Problems (1) Acute ischemic colitis Assessment/Plan: improving, wbc12, crp trending down tolerating fulls, diet advanced to soft ceftriaxone/flagyl, transition to po upon d/c encourage po hydration monitor closely for changes Code(s): K55.039 - ACUTE ISCHEMIA OF LARGE INTESTINE, EXTENT UNSPECIFIED (2) Sepsis Assessment/Plan: improved, hemodynamically stable renal function improved repeat lactic acid pending wbc trending down blood cultures neg UA/UC ordered stool cultures pending Code(s): A41.9 - SEPSIS, UNSPECIFIED ORGANISM Qualifiers: Sepsis type: sepsis due to unspecified organism Qualified Code(s): A41.9 - Sepsis, unspecified organism (3) LUX (acute kidney injury) Assessment/Plan: resolved s/p ivf Code(s): N17.9 - ACUTE KIDNEY FAILURE, UNSPECIFIED (4) Bloody diarrhea Assessment/Plan: diarrhea improved 1 episode yesterday Code(s): R19.7 - DIARRHEA, UNSPECIFIED (5) Abdominal pain Assessment/Plan: resolved Code(s): R10.9 - UNSPECIFIED ABDOMINAL PAIN Qualifiers: Abdominal location: unspecified location Qualified Code(s): R10.9 - Unspecified abdominal pain (6) Leukocytosis Assessment/Plan: improving Code(s): D72.829 - ELEVATED WHITE BLOOD CELL COUNT, UNSPECIFIED Qualifiers: Leukocytosis type: unspecified Qualified Code(s): D72.829 - Elevated white blood cell count, unspecified (7) HTN (hypertension) Assessment/Plan: controlled continue amlodipine/quinapril Code(s): I10 - ESSENTIAL (PRIMARY) HYPERTENSION Qualifiers: Hypertension type: essential hypertension Qualified Code(s): I10 - Essential (primary) hypertension (8) History of CVA (cerebrovascular accident) Assessment/Plan: continue statin/asa Code(s): Z86.73 - PRSNL HX OF TIA (TIA), AND CEREB INFRC W/O RESID DEFICITS Assessment/Plan Dispo: Home tomorrow if no clinical changes.Daughter at bedside, informed of plan.
[2018-01-29] MEDS ORDERED: cefTRIAXone SODIUM 1 GM VIAL ONE (10:33)
[2018-01-29] MEDS ORDERED: PT OWN MED DRAWER 7, Y5N ONE (10:33)
[2018-01-29] MEDS ORDERED: DEXTROSE 5%-WATER - 50 ML IVPB ONE (10:33)
[2018-01-29] MEDS: CEFTRIAXONE 1 GM in DEXTROSE 5%-WATER - 50 ML IVPB SCH (10:50)
[2018-01-29] MEDS: PANTOPRAZOLE 40 MG TABLET (FP) PO SCH (10:51)
[2018-01-29] MEDS: SOLIFENACIN SUCCINATE 5 MG TAB (FP) PO SCH (10:51)
[2018-01-29] MEDS: CHOLECALCIFEROL (VITAMIN D3) 400 UNIT TABLET (FP) PO SCH (10:51)
[2018-01-29] MEDS: LORATADINE 10 MG TABLET PO SCH (10:51)
[2018-01-29] MEDS: QUINAPRIL HCL 20 MG TABLET (FP) PO SCH (10:51)
[2018-01-29] MEDS: amLODIPine BESYLATE 5 MG TABLET (FP) PO SCH (10:51)
--- NOTE | 2018-01-29 11:27 | PN ---
GI Progress Note Subjective: GI NOte: Feeling better. Passed a small amount of old blood. I answered the daughters' questions at the bedside. - Objective Vital Signs: Vital Signs Temperature 98.6 F 01/29/18 10:49 Pulse Rate 81 01/29/18 10:49 Respiratory Rate 20 01/29/18 10:49 Blood Pressure 137/66 01/29/18 10:49 O2 Sat by Pulse Oximetry (%) 95 01/29/18 01:00 Laboratory Tests 01/28/18 01/29/18 06:00 06:30 WBC 14.9 H 12.7 H Constitutional: Calm ...Auscultate: Yes: Normoactive Bowel Sounds ...Palpate: Yes: Soft, Other (nontender) Labs: CBC, BMP 01/29/18 06:30 01/29/18 06:30 INR, PTT INR 1.11 (0.83-1.09) H 01/27/18 03:45 Problem List - Problems (1) Bloody diarrhea Assessment/Plan: Resolving ischemic colitis. Will try soft diet. Continue antibiotics. Discussed with Kaycee Ahn NP Code(s): R19.7 - DIARRHEA, UNSPECIFIED (2) Abdominal pain Code(s): R10.9 - UNSPECIFIED ABDOMINAL PAIN Qualifiers: Abdominal location: unspecified location Qualified Code(s): R10.9 - Unspecified abdominal pain (3) Leukocytosis Code(s): D72.829 - ELEVATED WHITE BLOOD CELL COUNT, UNSPECIFIED Qualifiers: Leukocytosis type: unspecified Qualified Code(s): D72.829 - Elevated white blood cell count, unspecified
[2018-01-29] MEDS: PANTOPRAZOLE SODIUM 40 MG VIAL IVPUSH SCH (11:47)
[2018-01-29 16:49] LABS: URINE APPEARANCE CLEAR; URINE BILIRUBIN NEGATIVE (<2.0 mg/dL); URINE COLOR STRAW; URINE GLUCOSE (UA) NEGATIVE (NEGATIVE); URINE KETONE NEGATIVE (NEGATIVE); URINE LEUK ESTERASE NEGATIVE (NEGATIVE); URINE NITRITE NEGATIVE (NEGATIVE); URINE PROTEIN NEGATIVE (NEGATIVE); URINE UROBILINOGEN NEGATIVE mg/dL (0.2-1.0)
[2018-01-29 17:03] LABS: EPI CELLS RARE /HPF (FEW); URINE BACTERIA RARE /hpf (NONE SEEN); URINE MUCUS RARE
[2018-01-29] MEDS: ATORVASTATIN CA 80 MG TABLET (FP) PO SCH ×2 (20:59→21:28)
[2018-01-30 07:30] LABS: BASO % 0.2 % (0-2.0); EOS % 3.4 % (0-4.5); HEMATOCRIT 34.1 % (32.4-45.2); HEMOGLOBIN 12.1 GM/dL (10.7-15.3); LYMPH % 10.6 % (8-40); MCH 31.6 pg (25.7-33.7); MCHC 35.5 g/dl (32.0-36.0); MEAN PLT VOLUME 9.3 fl (7.5-11.1); NEUT % 78.8 % (42.8-82.8); PLATELET COUNT 197 K/MM3 (134-434); RBC 3.83 M/mm3 (3.60-5.2); RDW 13.6 % (11.6-15.6); WHITE BLOOD COUNT 9.7 K/mm3 (4.0-10.0)
[2018-01-30 07:40] VITALS: PULSE 76
[2018-01-30 09:38] LABS: CHLORIDE 106 mmol/L (98-107); POTASSIUM 4.1 mmol/L (3.5-5.1); SODIUM 142 mmol/L (136-145)
[2018-01-30 09:48] LABS: ANION GAP 10 (8-16); BLOOD UREA NITROGEN 7 mg/dL (7-18); CALCIUM 8.5 mg/dL (8.5-10.1); CO2 26 mmol/L (21-32); CREATININE 0.7 mg/dL (0.55-1.02); GLUCOSE,RANDOM 91 mg/dL (74-106)
[2018-01-30] MEDS ORDERED: cefTRIAXone SODIUM 1 GM VIAL ONE (09:57)
[2018-01-30] MEDS ORDERED: DEXTROSE 5%-WATER - 50 ML IVPB ONE (09:57)
[2018-01-30] MEDS ORDERED: ASPIRIN COATED 81 MG TABLET.EC PO SCH (10:00)
[2018-01-30] MEDS: CEFTRIAXONE 1 GM in DEXTROSE 5%-WATER - 50 ML IVPB SCH ×2 (10:09→11:04)
[2018-01-30] MEDS: PANTOPRAZOLE 40 MG TABLET (FP) PO SCH (10:10)
[2018-01-30] MEDS: amLODIPine BESYLATE 5 MG TABLET (FP) PO SCH (10:10)
[2018-01-30] MEDS: QUINAPRIL HCL 20 MG TABLET (FP) PO SCH (10:10)
[2018-01-30] MEDS: LORATADINE 10 MG TABLET PO SCH (10:10)
[2018-01-30] MEDS: CHOLECALCIFEROL (VITAMIN D3) 400 UNIT TABLET (FP) PO SCH (10:11)
[2018-01-30] MEDS: SOLIFENACIN SUCCINATE 5 MG TAB (FP) PO SCH (10:12)
--- NOTE | 2018-01-30 10:26 | DS ---
Physical Examination Vital Signs: Vital Signs Temperature 98.8 F 01/30/18 06:00 Pulse Rate 76 01/30/18 06:00 Respiratory Rate 20 01/30/18 06:00 Blood Pressure 134/68 01/30/18 06:00 O2 Sat by Pulse Oximetry (%) 97 01/29/18 09:00 Constitutional: Yes: Well Nourished, No Distress, Calm Cardiovascular: Yes: WNL, Regular Rate and Rhythm. No: Murmur, Rub Respiratory: Yes: WNL, Regular, CTA Bilaterally. No: Accessory Muscle Use, Rales, Tachypnea, Wheezes Gastrointestinal: Yes: WNL, Normal Bowel Sounds, Soft, Abdomen, Obese. No: Distention, Tenderness Renal/: Yes: WNL Extremities: Yes: WNL Edema: No Neurological: Yes: WNL, Alert, Oriented Psychiatric: Yes: WNL, Alert, Oriented Labs: CBC, BMP 01/30/18 06:37 01/30/18 06:37 Discharge Summary Reason For Visit: NAUSEA, DIARRHEA, LEUKOCYTOSIS, ABDOMINAL PAIN Current Active Problems Acute ischemic colitis (Acute) Diarrhea (Acute) HTN (hypertension) (Chronic) History of CVA (cerebrovascular accident) (Chronic) Sciatica (Chronic) Hospital Course: is a 77 year old female who was admitted for sepsis secondary to ischemic colitis. Pt received ceftriaxone and flagyl x 3 days. wbcs trended down , wnl today. lactic acidosis resolved. keenan resolved. crp level trending down. pt also free of nausea, diarrhea, abd pain. Had 1 loose BM mixed with brown blood this am otherwise pt without acute findings. labs unremarkable. vitals stable, afebrile. Pt is tolerating soft diet without n/v. Antibx transitioned to po augmentin which she can continue for 7 more days to complete 10 day course. Case discussed with GI and they have cleared pt for discharge. Pt and daughter were informed of discharge plan yesterday morning. Pt is medically stable for discharge today from hospital. f/u as directed. 32 minutes spent in discharge planning Condition: Improved - Instructions Diet, Activity, Other Instructions: high fiber diet, no restrictions augmentin twice a day for 7 days drink adequate fluids atleast 2L/day f/u as directed Referrals: Toni Devine [Non Staff, Medical] - Rad Perez MD [Primary Care Provider] - 1 Week Disposition: HOME - Home Medications Comprehensive Discharge Medication List: Ambulatory Orders Amlodipine Besylate 5 mg PO DAILY 01/26/18 Aspirin [Steven Chewable Aspirin] 81 mg PO DAILY 01/26/18 Atorvastatin Ca [Lipitor] 80 mg PO HS 01/26/18 Celecoxib [Celebrex] 200 mg PO DAILY 01/26/18 Cholecalciferol (Vitamin D3) [Vitamin D3] 400 unit PO DAILY 01/26/18 Desloratadine [Clarinex] 5 mg PO DAILY 01/26/18 Docusate Sodium [Dulcolax Stool Softener] 100 mg PO DAILY 01/26/18 Multivit-Min/FA/Lycopen/Lutein [Centrum Silver Tablet] 1 each PO DAILY 01/26/18 Quinapril HCl 20 mg PO DAILY 01/26/18 Solifenacin Succinate [Vesicare -] 10 mg PO DAILY 01/26/18 Amox-Tr/K Cl [Augmentin - 875Mg Tablet] 1 tab PO BID 10 Days #14 tablet Lactobacillus Acidophilus [Acidophilus Lactobacilli] 1 each PO DAILY 10 Days # 10 capsule 01/30/18 Pantoprazole Sodium [Protonix -] 40 mg PO DAILY 14 Days #14 tablet.ec 01/30/18
[2018-01-30] MEDS ORDERED: AMOX TR/POT CLAV 875MG/125MG TABLETS (FP) PO SCH (10:45)
[2018-01-30 12:35] VITALS: BP 147/67; TEMP 97.6
[2018-01-30] MEDS ORDERED: ONDANSETRON 4 MG TABLET PO ONE (15:15)
== END 2018-01-30 15:45 | disposition home or self-care (01) | DRG 871 ==
LOC: JER 21:35 → JERBED 01-27 02:59 → J7W 01-27 11:32 → OBSVTOIN 01-28 14:38
PROVIDERS: ADMIT Internal Medicine; ATTEND Internal Medicine
DX: A41.9 Sepsis, unspecified organism (principal); K55.039 Acute (reversible) ischemia of large intestine, extent unspecified; N17.9 Acute kidney failure, unspecified; E87.2 Acidosis; R11.0 Nausea; E86.0 Dehydration; M54.30 Sciatica, unspecified side; I10 Essential (primary) hypertension; Z86.73 Personal history of transient ischemic attack (TIA), and cerebral infarction without residual deficits; D72.829 Elevated white blood cell count, unspecified; E78.5 Hyperlipidemia, unspecified
CPT/HCPCS: 36415; 74177-TC; 80048; 80053; 81003; 81015; 83605; 83690; 83735; 84484; 85025; 85610; 85730; 86140; 87040; 87086; 93005; 93010; 97116-GP; 97161-GP; 99283-25; G0378; J0131; J7030